=== PATIENT | male | born 1945 | race Caucasian/White ===

== ENCOUNTER 2019-03-03 08:15 | Day surgery (SDC) | payer MEDICARE ==
[2019-03-03] MEDS ORDERED: Midazolam 1 MG/ML 2 ML SDV ONE (08:24)
[2019-03-03] MEDS ORDERED: fentaNYL 100 MCG/2 ML SDV ONE (08:24)
[2019-03-03] MEDS ORDERED: Propofol 200 MG/20 ML SDV ONE ×2 (08:24→10:19)
[2019-03-03] MEDS ORDERED: ceFAZolin 2 GM in Premix Bag 1 BAG IV ONE (08:30)
[2019-03-03] MEDS ORDERED: ceFAZolin 2 GM in Sodium Chloride 0.9% 50 ML IV ONE (08:30)
[2019-03-03] MEDS ORDERED: Bupivacaine 0.5% 50 ML MDV ONE (08:48)
[2019-03-03] MEDS ORDERED: Lidocaine 1% with EPINEPHrine 1:100,000 50 ML MDV ONE (08:48)
[2019-03-03] MEDS ORDERED: Dextrose 5%-Lactated Ringers 1,000 ML IV SCH (09:00)
[2019-03-03] MEDS ORDERED: Acetaminophen/HYDROcodone 325-5 MG Tab PO ONE ×2 (11:24→12:59)
--- NOTE | 2019-03-04 08:26 | OR ---
DATE OF PROCEDURE: 03/03/2019 SURGEON: Terell Eason MD PREOPERATIVE DIAGNOSIS: Reducible right inguinal hernia. POSTOPERATIVE DIAGNOSIS: Reducible direct right inguinal hernia. PROCEDURE: Repair of reducible direct right inguinal hernia with an extra- large PerFix mesh plug and patch. SURGEON: Terell Eason MD. ANESTHESIA: IV anesthesia with monitored anesthesia care. INDICATION: This 73-year-old white male has a reducible right inguinal hernia. He has been aware of this for at least many months. He had an appendectomy in [place] in September, at which time they told him about the right inguinal hernia. It is now bothering him. He presents for repair of it. He denies predisposing factors for hernia formation. It is reducible. I counseled him for repair of this right inguinal hernia with a mesh plug and patch, and he gave his informed consent to proceed. DESCRIPTION OF PROCEDURE: After adequate IV anesthesia was obtained, the patient's lower abdomen, groin, and genitalia were prepped and draped in the usual sterile fashion. Time-out was held. Lidocaine 1% with epinephrine in a 50:50 mix with 0.5% Marcaine was infiltrated about the right groin. A right groin incision was made 2 cm superior and medial to the inguinal ligament. This was carried deep using Bovie cautery to the external oblique. The external oblique was opened parallel to the course of its fibers, from the internal to external ring. The spermatic cord was mobilized and a Ranier placed around it. The cremasteric fibers were longitudinally to reveal no indirect sac. The ilioinguinal nerve was divided. The floor was essentially gone consistent with a large reducible direct inguinal hernia. This was dissected free and reduced back into the abdominal cavity. An extra-large PerFix mesh plug manufactured by [employer] was obtained. This was placed down under the fascia and anchored to the underside of the fascia with horizontal mattress stitches of 2-0 Vicryl. This involved approximating the internal leaves to the associated fascia. The onlay patch was obtained, cut to appropriate length, and placed over the inguinal floor. It was anchored to itself around the spermatic cord with a horizontal mattress stitch of 2-0 Vicryl. The external oblique was then closed with a running stitch of 3-0 Vicryl over the spermatic cord and mesh. Interrupted 3- 0 Vicryl stitch were placed to approximate the Jevon fascia and 4-0 Vicryl using a subcuticular stitch was placed to approximate the skin. Dermabond was applied. The patient tolerated the procedure well and was brought to the recovery room in good condition. Terell Eason MD /[id number]
== END 2019-03-03 13:39 | disposition home or self-care (01) ==
LOC: JP.SDS 08:15
PROVIDERS: ATTEND Surgery
DX: K40.90 Unilateral inguinal hernia, without obstruction or gangrene, not specified as recurrent (principal); F17.200 Nicotine dependence, unspecified, uncomplicated; Z79.82 Long term (current) use of aspirin; Z79.899 Other long term (current) drug therapy
CPT/HCPCS: 49505; A9270; C1781; J0690; J2250; J2704; J3010; J3490; J7042; J7050

== ENCOUNTER 2025-03-17 01:32 | Emergency (ER) | payer MEDICARE ==
[2025-03-17] MEDS ORDERED: Sodium Chloride 0.9% 10 ML Syringe FLUSH PRN (02:03)
[2025-03-17 02:15] LABS: BASOPHILS ABSOLUTE AUTO 0.07 K/uL (0.00-0.10); BASOPHILS PERCENT AUTO 0.6 % (0.1-1.3); EOSINOPHILS ABSOLUTE AUTO 0.32 K/uL (0.00-0.40); EOSINOPHILS PERCENT AUTO 3.0 % (0.0-5.4); IMMATURE GRAN ABSOLUTE AUTO 0.03 K/uL (0.00-0.23); IMMATURE GRAN PERCENT AUTO 0.3 % (0.0-0.7); LYMPHOCYTES ABSOLUTE AUTO 1.76 K/uL (0.8-3.3); LYMPHOCYTES PERCENT AUTO 16.3 % (11.4-47.7); MONOCYTES ABSOLUTE AUTO 0.79 K/uL (0.20-0.90); MONOCYTES PERCENT AUTO 7.3 % (3.3-12.6); NEUTROPHILS ABSOLUTE AUTO 7.81 K/uL (1.0-7.6); NEUTROPHILS PERCENT AUTO 72.5 % (40.0-78.1); PLATELET COUNT,PLT 256 K/uL (130-375); RED BLOOD CELL COUNT 4.28 M/uL (4.14-5.76); WHITE BLOOD CELL COUNT,WBC 10.8 K/uL (3.2-11.0)
[2025-03-17] MEDS: fentaNYL 100 MCG/2 ML SDV IVPUSH ONE (02:15)
[2025-03-17] MEDS: Ondansetron 4 MG/2 ML SDV IVPUSH ONE (02:20)
[2025-03-17 02:36] LABS: A/G RATIO 0.9 (1.2-2.2); ALANINE AMINOTRANSFERASE,ALT 21 U/L (12-78); ASPARTATE AMNIOTRANSFERASE,AST 17 U/L (15-37); BILIRUBIN TOTAL 0.5 mg/dL (0.2-1.0); BLOOD UREA NITROGEN,BUN 27 mg/dL (7-18); CARBON DIOXIDE,CO2 23 mmol/L (21-32); CHLORIDE,CL 103 mmol/L (100-108); CREATININE 2.5 mg/dL (0.8-1.3); EST CRCL DRUG DOSING (CG) 22.01 mL/min; ESTIMATED GFR 26 mL/min (>60); GLUCOSE RANDOM 113 mg/dL (74-106); POTASSIUM,K 4.1 mmol/L (3.6-5.2); PROTEIN TOTAL,TP 7.2 g/dL (6.4-8.2); SODIUM,NA 137 mmol/L (140-148)
[2025-03-17] MEDS: Sodium Chloride 0.9% 10 ML Syringe FLUSH PRN (02:47)
[2025-03-17] MEDS: Iopamidol 612 MG/ML 100 ML Bottle IV SCH (02:47)
[2025-03-17 03:27] LABS: APPEARANCE,URINE CLEAR (CLEAR); GLUCOSE,URINE NEGATIVE (NEGATIVE); OCCULT BLOOD,URINE TRACE-INTACT (NEGATIVE)
[2025-03-17 03:28] LABS: SQUAMOUS EPITHELIAL CELLS,UR RARE /HPF; UROTHELIAL CELLS,URINE NOT SEEN /HPF
== END 2025-03-17 04:05 | disposition home or self-care (01) ==
LOC: JP.ED 01:32
DX: N40.1 Benign prostatic hyperplasia with lower urinary tract symptoms (principal); R33.8 Other retention of urine; F17.210 Nicotine dependence, cigarettes, uncomplicated; Z79.82 Long term (current) use of aspirin; Z79.899 Other long term (current) drug therapy
CPT/HCPCS: 36415; 51702; 74177; 80053; 81001; 83605; 83690; 85025; 96361; 96374; 96375; 99284; J2405; J3010; J7030; Q9967

== ENCOUNTER 2025-03-23 22:20 | Emergency (ER) | payer MEDICARE ==
[2025-03-23] MEDS: Lidocaine 2% Jelly 10 ML Urojet MUCMEM ONE (22:39)
[2025-03-23 22:50] LABS: BASOPHILS ABSOLUTE AUTO 0.08 K/uL (0.00-0.10); BASOPHILS PERCENT AUTO 0.9 % (0.1-1.3); EOSINOPHILS ABSOLUTE AUTO 0.31 K/uL (0.00-0.40); EOSINOPHILS PERCENT AUTO 3.5 % (0.0-5.4); IMMATURE GRAN PERCENT AUTO 0.2 % (0.0-0.7); LYMPHOCYTES ABSOLUTE AUTO 1.27 K/uL (0.8-3.3); LYMPHOCYTES PERCENT AUTO 14.3 % (11.4-47.7); MONOCYTES ABSOLUTE AUTO 0.78 K/uL (0.20-0.90); MONOCYTES PERCENT AUTO 8.8 % (3.3-12.6); NEUTROPHILS ABSOLUTE AUTO 6.40 K/uL (1.0-7.6); NEUTROPHILS PERCENT AUTO 72.3 % (40.0-78.1); PLATELET COUNT,PLT 254 K/uL (130-375); RED BLOOD CELL COUNT 3.97 M/uL (4.14-5.76); WHITE BLOOD CELL COUNT,WBC 8.9 K/uL (3.2-11.0)
[2025-03-23 22:51] LABS: IMMATURE GRAN ABSOLUTE AUTO 0.02 K/uL (0.00-0.23)
[2025-03-23 23:06] LABS: BLOOD UREA NITROGEN,BUN 25 mg/dL (7-18); CARBON DIOXIDE,CO2 24 mmol/L (21-32); CHLORIDE,CL 101 mmol/L (100-108); CREATININE 2.7 mg/dL (0.8-1.3); ESTIMATED GFR 23 mL/min (>60); POTASSIUM,K 4.6 mmol/L (3.6-5.2); SODIUM,NA 135 mmol/L (140-148)
[2025-03-23] MEDS ORDERED: Naloxone 0.4 MG/ML SDV IVPUSH PRN (23:25)
[2025-03-23 23:50] LABS: GLUCOSE RANDOM 120 mg/dL (74-106)
== END 2025-03-24 00:10 | disposition other institution (70) ==
LOC: JP.ED 22:20
DX: R33.9 Retention of urine, unspecified (principal); Z90.49 Acquired absence of other specified parts of digestive tract; Z79.82 Long term (current) use of aspirin; Z79.899 Other long term (current) drug therapy
CPT/HCPCS: 36415; 51702; 80048; 85025; 96372; 99284; J1171